=== PATIENT | male | born 1995 | race Caucasian/White ===

== ENCOUNTER 2017-07-18 03:28 | Emergency (ER) | payer SELFPAY ==
[2017-07-18 03:41] VITALS: TEMP 99
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
[2017-07-18 03:53] VITALS: BP 135/73; PULSE 119; RESP 16; O2SAT 93
== END 2017-07-18 04:01 | disposition home or self-care (01) ==
LOC: EDBD 03:28
DX: S01.511A Laceration without foreign body of lip, initial encounter (principal); F10.920 Alcohol use, unspecified with intoxication, uncomplicated; Y08.89XA Assault by other specified means, initial encounter; Y99.8 Other external cause status; Y93.89 Activity, other specified

== ENCOUNTER 2017-07-18 05:22 | Emergency (ER) | payer SELFPAY ==
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
[2017-07-18 05:30] VITALS: BP 137/94; PULSE 104; RESP 16; TEMP 99.3; O2SAT 94
== END 2017-07-18 05:59 | disposition home or self-care (01) ==
LOC: EDUNIT#
DX: S01.511A Laceration without foreign body of lip, initial encounter (principal); Y04.2XXA Assault by strike against or bumped into by another person, initial encounter; Y92.009 Unspecified place in unspecified non-institutional (private) residence as the place of occurrence of the external cause; Y99.8 Other external cause status; Y93.89 Activity, other specified